=== PATIENT | male | born 1965 | race Hispanic/Latino ===

== ENCOUNTER → 2019-01-04 15:15 | Outpatient (CLI) | payer OTHER, SELFPAY ==
[2019-01-04 15:51] LABS: Hemoglobin A1C% w Est Avg Glu 5.6 % (4.0-6.0)
[2019-01-04 16:07] LABS: Alanine Aminotransferase 49 IU/L (21-72); Albumin 4.5 g/dL (3.5-5.0); Albumin Globulin Ratio 1.6 (1.0-2.8); Alkaline Phosphatase 96 U/L (38-126); Aspartate Aminotransferase 30 IU/L (17-59); BUN Creatinine Ratio 18.9 (6-22); Bilirubin Total 0.2 mg/dL (0.2-1.3); Blood Urea Nitrogen 17 mg/dL (9-20); Calcium 9.8 mg/dL (8.4-10.2); Carbon Dioxide 29 mmol/L (22-32); Chloride 103 mmol/L (98-107); Cholesterol 181 mg/dL (140-199); Estimated Glomerular Filt Rate > 60.0 mL/min (>60); Globulin 2.8 g/dL (1.7-4.1); Glucose 98 mg/dL (70-100); HDL Cholesterol 30 mg/dL (40-60); HEMOLYSIS < 15 (0-50); Potassium 4.2 mmol/L (3.4-5.1); Sodium 139 mmol/L (137-145); Total Protein 7.3 g/dL (6.3-8.2); Triglycerides 448 mg/dL (35-150)
[2019-01-04 16:21] LABS: Vitamin D 25 Hydroxy (D3) 17.5 ng/mL (30.0-100.0)
== END ==
PROVIDERS: PCP Internal Medicine; Visit Provider Student in an Organized Health Care Education/Training Program
DX: Z13.220 Encounter for screening for lipoid disorders (principal); E55.9 Vitamin D deficiency, unspecified; E66.01 Morbid (severe) obesity due to excess calories; I16.0 Hypertensive urgency; Z79.899 Other long term (current) drug therapy
CPT/HCPCS: 36415; 80053; 80061; 82306; 83036

== ENCOUNTER 2019-02-23 08:30 | Day surgery (SDC) | payer OTHER, SELFPAY ==
[2019-02-23 08:52] VITALS: BP 145/93; PULSE 84; RESP 16; TEMP 36.6; O2SAT 98; BMI 39.7
[2019-02-23] MEDS: SODIUM CHLORIDE 0.9% 1,000 ML 200 ML IV (09:00)
--- NOTE | 2019-02-23 09:25 | PM.HP.1 ---
History of Present Illness History of Present Illness Date Patient Seen: 02/23/19 Time Patient Seen: 09:25 Chief complaint: [id number] SCREENING COLONOSCOPY Narrative: This is a 53 yo man with history of colonoscopy 20 years ago for bleeding, during which some polyps were found per the patient, but no source of bleeding. At that time he was found to have peptic ulcers on an EGD as his source of bleeding. I don't have the records from that procedure. He is here for screening colonoscopy because he is beyond the appropriate age for screening. He denies any recent history of bleeding or melena. He denies any unexplained weight loss or abdominal pain. ROS: Positive for obesity. Denies cold symptoms, thirteen system review is otherwise negative other than as mentioned below and in HPI. PE: GENERAL: Well groomed and cooperative. Obese. Appears stated age. Answers questions promptly and appropriately. Vital signs noted. HENT: Normocephalic, atraumatic. Hearing intact. Oral mucosa is pink and moist. EYES: Conjunctiva pink, sclera white, no periorbital swelling. CARDIOVASCULAR: Regular rate. No pedal edema. RESPIRATORY: Non-tachypneic, breathing comfortably on room air. GASTROINTESTINAL: Abdomen soft and non-distended GENITALURINARY: No flank tenderness. MUSCULOSKELETAL: Equal tone and mass bilaterally. SKIN: Warm, dry, soft, appropriate color for ethnicity. No other lesions, rashes, or wounds. NEURO: Alert and Oriented X 3. No gross sensory deficits, or cognitive issues. PSYCH: Appropriate affect and mood. Patient History Medical History Chicken pox (Resolved ~1972) Fractures (Resolved ~1995) Frequent headaches (Resolved ~2018) History of skin disorder (Chronic ~2010) Measles (Resolved ~1971) Migraines (Chronic ~2018) Shoulder pain (Chronic ~1991) Surgical History Anesthesia (Resolved) Broken nose (Resolved ~1975) History of tonsillectomy (Resolved ~1969) Family & Social History Family History Grandfather Diabetes mellitus Grandmother No problems noted. Grandfather History of heart disease Hyperlipidemia Hypertension Grandmother History of emphysema Social History: household members spouse Tobacco & Substance use: Smoking Status Former smoker Meds Home Medications and Allergies Home Medications Medication Instructions Recorded Confirmed Type czemcecj-hjy-vvhty-vit K-lycop 1 tab PO DAILY #0 09/28/12 02/23/19 History [One-A-Day Men's Multivitamin] aspirin 81 mg tablet,delayed 81 mg PO DAILY 01/23/19 02/23/19 History release losartan 100 1 tab PO DAILY #90 tab 02/21/19 02/23/19 Rx mg-hydrochlorothiazide 12.5 mg tablet Allergies Allergy/AdvReac Type Severity Reaction Status Date / Time lisinopril AdvReac Mild Cough Verified 02/23/19 08:49 Exam Vital Signs (past 8 hours): - 02/23/19 08:52 Temperature 98 F Pulse Rate 84 Respiratory Rate 16 Blood Pressure 145/93 H Pulse Oximetry 98 Oxygen Delivery Method Room Air Assessment & Plan Assessment and plan (1) Colon cancer screening: Current visit: Yes Status: Acute (2) At average risk for colon cancer: Current visit: Yes Status: Acute Assessment & Plan narrative: Is a 53-year-old man here for screening colonoscopy. Risk of bleeding, perforation, need for additional procedures, risk of anesthesia were discussed. Patient desires to proceed with his colonoscopy. Time Spent With Patient Time with patient: 15-24 minutes Quality VTE Deep Vein Thrombosis/Pulmonary Embolism Present on Admission: No
[2019-02-23] MEDS: fentaNYL 250 MCG/5 ML INJ IV (09:50)
[2019-02-23] MEDS: MIDAZOLAM 5 MG/5 ML VIAL IV (09:50)
--- NOTE | 2019-02-23 09:50 | PM.OP.ENDO ---
Operative Date/Time/Diagnoses Date of procedure: 02/23/19 Time of procedure: 09:51 Pre-op diagnosis: Average risk for colon cancer Post-op diagnosis: same Procedure & Clinicians Study performed: Screening colonoscopy Same procedure as scheduled: Yes Indications: Average risk for colon cancer Surgeon: Shraddha Man Procedure Notes SCOAP/Timeout: Performed Procedure in detail: The patient was brought to the room and placed in left lateral decubitus position with all bony prominences padded. A time-out was performed and then the patient was given procedural sedation starting with [4] mg of Versed and [100] mcg of fentanyl. Vitals were monitored throughout the procedure and remained stable. Once adequately sedated the procedure was begun. A rectal exam was performed revealing [no abnormalities]. The colonoscope was then introduced to the rectum and advanced to the cecum in the usual fashion. []The cecum was identified by the appendiceal orifice, the mucosal tri-fold, and the ileocecal valve. The scope was then retracted while rotating side to side and examining each mucosal fold. [] At the conclusion of the procedure retroflexion was performed and [small grade 1-2 internal hemorrhoids without stigmata of bleeding were seen]. The scope was then withdrawn from the rectum the procedure was concluded. The patient tolerated the procedure well and was transferred to the PACU in stable condition. Scope withdrawal time: 9 Sedation minutes: 15 Findings: other findings (Normal colon) Specimen(s): none sent Complications: none Impression: Normal colon Post-procedure Recommendations: Colonscopy in 10 years Follow up: as needed Disposition: PACU
[2019-02-23 09:56] VITALS: BP 142/94; PULSE 82; RESP 17; TEMP 37.2; O2SAT 95
[2019-02-23 10:01] VITALS: BP 140/93; PULSE 89; RESP 18; O2SAT 96
[2019-02-23 10:05] VITALS: BP 154/94; PULSE 76; RESP 14; TEMP 37.1; O2SAT 97
[2019-02-23 10:10] VITALS: BP 143/94; PULSE 79; RESP 16; TEMP 36.6; O2SAT 98
[2019-02-23 10:15] VITALS: BP 147/90; PULSE 78; RESP 16; TEMP 36.9; O2SAT 96
== END 2019-02-23 10:30 | disposition home or self-care (01) ==
PROVIDERS: PCP Student in an Organized Health Care Education/Training Program; Visit Provider Surgery
PROC: 0DJD8ZZ Inspection of Lower Intestinal Tract, Via Natural or Artificial Opening Endoscopic (ICD-10-PCS; CPT 45378; principal; 2019-02-23 09:15)
DX: Z12.11 Encounter for screening for malignant neoplasm of colon (principal); K64.0 First degree hemorrhoids
CPT/HCPCS: 45378; 99152; J2250; J3010

== ENCOUNTER → 2019-04-26 07:43 | Outpatient (CLI) | payer OTHER, SELFPAY ==
[2019-04-26 08:51] LABS: Vitamin D 25 Hydroxy (D3) 34.4 ng/mL (30.0-100.0)
[2019-04-26 09:07] LABS: Blood Urea Nitrogen 18 mg/dL (9-20); Calcium 9.6 mg/dL (8.4-10.2); Carbon Dioxide 26 mmol/L (22-32); Chloride 104 mmol/L (98-107); Estimated Glomerular Filt Rate > 60.0 mL/min (>60); Glucose 107 mg/dL (70-100); HEMOLYSIS < 15 (0-50); Potassium 4.1 mmol/L (3.4-5.1); Sodium 139 mmol/L (137-145); Triglycerides 187 mg/dL (35-150)
== END ==
PROVIDERS: PCP Student in an Organized Health Care Education/Training Program; Referring Provider Student in an Organized Health Care Education/Training Program; Visit Provider Student in an Organized Health Care Education/Training Program
DX: E55.9 Vitamin D deficiency, unspecified (principal); E78.1 Pure hyperglyceridemia; I10 Essential (primary) hypertension
CPT/HCPCS: 36415; 80048; 82306; 84478

== ENCOUNTER → 2019-09-01 09:41 | Outpatient (CLI) | payer OTHER, SELFPAY ==
[2019-09-02 10:28] LABS: COVID19 Sendout Not Detected (Not Detect)
== END ==
PROVIDERS: PCP Student in an Organized Health Care Education/Training Program; Visit Provider Physician Assistant
DX: Z11.59 Encounter for screening for other viral diseases (principal)
CPT/HCPCS: 87635

== ENCOUNTER 2019-09-04 06:36 | Day surgery (SDC) | payer OTHER, SELFPAY ==
[2019-08-30 08:14] VITALS: BMI 42.7
[2019-09-04] VITALS (7 sets, daily range): BP systolic 95–134; BP diastolic 73–93; PULSE 76–90; RESP 12–18; TEMP 36.1–36.7; O2SAT 95–99; BMI 42.7
--- NOTE | 2019-09-04 | PATH_ITS ---
[facility] Accession Number: [id number] . 01 Material submitted: . neck - NECK SOFT TISSUE MASS . 01 Diagnosis: Neck, Excision: Mature adipose tissue consistent with lipoma. [facility] 09/06/2019 1723 Local . 01 Electronically signed: . Lucila Bosch MD, Dermatopathologist NPI- [id number] . 01 Gross description: . NECK SOFT TISSUE MASS: Received in formalin is 1 fragment of palencia soft tissue measuring 5.5 x 4.0 x 2.0 cm. Tissue is inked. Specimen is sectioned and submitted in patient financial representative sections in 4 cassettes. /JOSE GUADALUPE 09/05/2019 1840 Local . 01 Pathologist provided ICD-10: D17.9 . 01 CPT . 544871 Performed at: [address] [facility] [address], [place], [place] [id number] MD Km Portillo MD Phone: [phone]
--- NOTE | 2019-09-04 07:29 | PM.PREOP ---
Pre-operative Note COVID-19 COVID-19 status: Negative Result date/Date tested (Pos, Neg/Pending): 09/01/19 Interval Note History & Physical reviewed/Exam performed by Physician: Yes Changes to H&P: No
[2019-09-04] MEDS: LACTATED RINGERS 1,000 ML 42 ML IV (07:34)
[2019-09-04] MEDS: CEFAZOLIN 2 GM/100 ML FROZ.PIGGY IV (07:42)
--- NOTE | 2019-09-04 07:55 | SUR.OPER ---
Lateral on olivas bag, head on pillow, gel axillary roll in place, bottom leg bent with gel pad under knee to foot, upper leg straight and supported with pillows. Upper arm supported by pillows and secured over bottom arm to padded arm board. Safety belt at hip, tape over torso, tape over blanket lower legs.
[2019-09-04] MEDS: BUPIVACAINE 0.25% (PF) VIAL 30 ML INJ (08:06)
--- NOTE | 2019-09-04 08:56 | PM.OP.1 ---
Operative Date/Time/Diagnoses Date of procedure: 09/04/19 Time of procedure: 08:56 Pre-op diagnosis: Soft tissue mass posterior neck Post-op diagnosis: same Procedure & Clinicians Procedure: Excision soft tissue mass neck Same procedure as scheduled: Yes Indications: 53-year-old male with a symptomatic enlarging superficial soft tissue masses posterior neck presents for elective resection Surgeon: Ronny Lin Anesthesia Type: General Operative Notes Findings: 10 x 8 cm soft tissue mass appearance consistent with a lipoma Specimen(s): other (Soft tissue mass neck) Procedure in detail: Patient was brought to the operating room and placed in the lateral position with left side up. Monitored anesthesia care was induced. Bilateral lower extremity compression devices were applied. He received Ancef prior to skin incision. Time-out was performed. Skin was infiltrated with 0.25% bupivacaine. An incision was made at the base of the posterior neck over the soft tissue mass. Skin flaps were elevated above below. The soft tissue mass was consistent with the lipoma was superficial and was mobilized from the underlying fascial plane was approximately 10 x 8 cm. . It was then dissected out circumferentially and passed off the field as specimen. The field was copiously lavaged hemostasis achieved and 3 0 Vicryl was used to reapproximate the subcutaneous tissue. For Monocryl was run to close the skin followed by the application of Dermabond. He extubated was transferred to the recovery room in stable condition. Complications: none Post-operative Condition: stable Disposition: same day surgery
[2019-09-04] MEDS: ACETAMINOPHEN 325 MG TABLET 650 MG PO (09:10)
--- NOTE | 2019-09-04 09:47 | SUR.PHASEII ---
D/C instructions discussed by Nuha, all voiced an understanding. Pt left when ready and left in stable condition.
== END 2019-09-04 09:35 | disposition home or self-care (01) ==
PROVIDERS: PCP Student in an Organized Health Care Education/Training Program; Referring Provider Surgery; Visit Provider Surgery
PROC: (CPT 21554; principal; 2019-09-04 07:45)
DX: D17.0 Benign lipomatous neoplasm of skin and subcutaneous tissue of head, face and neck (principal); I10 Essential (primary) hypertension; E66.9 Obesity, unspecified
CPT/HCPCS: 21554; J0690; J2704; J3010

== ENCOUNTER → 2019-11-30 15:54 | Outpatient (CLI) | payer OTHER, SELFPAY ==
--- NOTE | 2019-11-30 15:58 | DIET.PN ---
Dietary Progress Note Assessment: 54y M here for help c weight loss and to regulate high TGs and low HDL. 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 Pt was working on his health and fitness prior to covid but has since stopped and is motivated to start again. 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 has bowl of candy for employees, usually chocolate but doesn't usually partake, had a trail mix in desk. Meds: losartin, and hydrochlorothiazide every day No active physical activity at this time. 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 Interventions: 1. Focus on getting back into physical activity. [employer] is open, pt will start going tomorrow each day at 4:30am. Pt will alternate 30 min on treadmill plus weights with 10min cycles of treadmill/elliptical/bike as he noticed weight plateau after losing 10# last attempt. 2. Be discerning when eating out lunch c coworkers. Pt is overconsuming high fat/high kcal/high carb meals 5d/w contributing to high TG and low HLD. Pt will ask for no rice c Kosovan food, 1/2 rice c food, and focus on low saturated fat fillings c sandwiches. Pt will order vegetables c meal whenever possible. Pt will increase consumption of beans to support protein needs and increase soluble fiber to promote weight loss. Monitoring/Evaluations: f/u in 1mo to assess progress, pt open to telehealth once available.
== END ==
PROVIDERS: PCP Student in an Organized Health Care Education/Training Program; Referring Provider Student in an Organized Health Care Education/Training Program; Visit Provider Student in an Organized Health Care Education/Training Program
DX: E66.9 Obesity, unspecified (principal); Z68.41 Body mass index [BMI] 40.0-44.9, adult; Z71.3 Dietary counseling and surveillance
CPT/HCPCS: 97802

== ENCOUNTER → 2021-03-05 11:22 | Outpatient (CLI) | payer OTHER, SELFPAY ==
[2021-03-05 12:42] LABS: BUN Creatinine Ratio 20.2 (6-22); Blood Urea Nitrogen 20 mg/dL (9-20); Calcium 9.7 mg/dL (8.4-10.2); Carbon Dioxide 30 mmol/L (22-32); Chloride 104 mmol/L (98-107); Estimated Glomerular Filt Rate > 60.0 mL/min (>60); Glucose 103 mg/dL (70-100); HEMOLYSIS 18 (0-50); Potassium 3.9 mmol/L (3.4-5.1); Sodium 141 mmol/L (137-145)
[2021-03-05 13:15] LABS: Prostate Specific Antigen Scrn 1.44 ng/mL (0.1-4.0)
== END ==
PROVIDERS: PCP Student in an Organized Health Care Education/Training Program; Referring Provider Student in an Organized Health Care Education/Training Program; Visit Provider Student in an Organized Health Care Education/Training Program
DX: I10 Essential (primary) hypertension (principal); E66.01 Morbid (severe) obesity due to excess calories; R73.03 Prediabetes; Z12.5 Encounter for screening for malignant neoplasm of prostate
CPT/HCPCS: 36415; 80048; 83036; G0103

== ENCOUNTER → 2022-03-24 09:45 | Outpatient (CLI) | payer OTHER, SELFPAY ==
[2022-03-24 11:00] LABS: BUN Creatinine Ratio 17.4 (6-22); Blood Urea Nitrogen 15 mg/dL (9-20); Calcium 9.3 mg/dL (8.4-10.2); Carbon Dioxide 29 mmol/L (22-32); Chloride 102 mmol/L (98-107); Estimated Glomerular Filt Rate > 60 mL/min (>60); Glucose 91 mg/dL (70-100); HEMOLYSIS < 15 (0-50); Potassium 4.3 mmol/L (3.4-5.1); Sodium 139 mmol/L (137-145)
[2022-03-25 20:25] LABS: Hep C Virus Ab w/Reflex Quant NEGATIVE s/c (NEGATIVE)
== END ==
PROVIDERS: PCP Student in an Organized Health Care Education/Training Program; Referring Provider Student in an Organized Health Care Education/Training Program; Visit Provider Student in an Organized Health Care Education/Training Program
DX: I10 Essential (primary) hypertension (principal); Z11.59 Encounter for screening for other viral diseases
CPT/HCPCS: 36415; 80048; 86803

== ENCOUNTER → 2023-03-18 11:56 | Outpatient (CLI) | payer OTHER, SELFPAY ==
[2023-03-18 13:04] LABS: Add Manual Diff / Slide Review NO; Basophils Absolute Auto 100 /uL (0-100); Basophils Percent Auto 1.5 % (0-2); Eosinophils Absolute Auto 300 /uL (0-450); Eosinophils Percent Auto 3.1 % (2-4); Hematocrit 44.3 % (41-53); Lymphocytes Absolute Auto 3200 /uL (1100-4500); Lymphocytes Percent Auto 37.4 % (25-40); Mean Corpuscular HGB Conc 33.9 % (30-36); Mean Corpuscular Hemoglobin 28.8 PG (26-34); Mean Corpuscular Volume 84.8 fL (80-100); Monocytes Absolute Auto 800 /uL (0-900); Monocytes Percent Auto 9.5 % (3-14); Neutrophils Absolute Auto 4100 /uL (1500-7000); Neutrophils Percent Auto 48.5 % (50-75); Platelet Count 292 X10^3/uL (150-400); Red Blood Cell Count 5.22 X10^6/uL (4.5-5.9); Red Cell Distribution Width 13.5 % (11.6-14.8); White Blood Cell Count 8.5 X10^3/uL (4.5-11.0)
[2023-03-18 13:12] LABS: Hemoglobin A1C% w Est Avg Glu 6.1 % (4.0-6.0)
[2023-03-18 13:25] LABS: Alanine Aminotransferase 74 IU/L (<50); Albumin 4.4 g/dL (3.5-5.0); Albumin Globulin Ratio 1.4 (1.0-2.8); Alkaline Phosphatase 80 U/L (38-126); Aspartate Aminotransferase 37 IU/L (17-59); BUN Creatinine Ratio 16.5 (6-22); Bilirubin Total 0.5 mg/dL (0.2-1.3); Blood Urea Nitrogen 16 mg/dL (9-20); Calcium 9.9 mg/dL (8.4-10.2); Carbon Dioxide 28 mmol/L (22-32); Chloride 103 mmol/L (98-107); Cholesterol 179 mg/dL (140-199); Estimated Glomerular Filt Rate > 60 mL/min (>60); Globulin 3.1 g/dL (1.7-4.1); Glucose 90 mg/dL (70-100); HDL Cholesterol 30 mg/dL (40-60); HEMOLYSIS < 15 (0-50); LDL Cholesterol Calculated 82 mg/dL (<100); Potassium 4.3 mmol/L (3.4-5.1); Sodium 139 mmol/L (137-145); Total Protein 7.5 g/dL (6.3-8.2); Triglycerides 335 mg/dL (35-150)
[2023-03-18 13:53] LABS: Prostate Specific Antigen 2.22 ng/mL (0.10-4.00)
== END ==
PROVIDERS: PCP Family Medicine; Referring Provider Family Medicine; Visit Provider Family Medicine
DX: R73.03 Prediabetes (principal); I10 Essential (primary) hypertension; E78.1 Pure hyperglyceridemia; Z12.5 Encounter for screening for malignant neoplasm of prostate
CPT/HCPCS: 36415; 80053; 80061; 83036; 84153; 85025

== ENCOUNTER → 2024-01-13 08:19 | Outpatient (CLI) | payer OTHER, SELFPAY ==
[2024-01-13 09:14] LABS: Hemoglobin A1C% w Est Avg Glu 6.1 % (4.0-6.0)
[2024-01-13 09:20] LABS: Alanine Aminotransferase 44 IU/L (<50); Albumin 4.3 g/dL (3.5-5.0); Albumin Globulin Ratio 1.7 (1.0-2.8); Alkaline Phosphatase 73 U/L (38-126); Aspartate Aminotransferase 25 IU/L (17-59); BUN Creatinine Ratio 21.8 (6-22); Bilirubin Total 0.4 mg/dL (0.2-1.3); Blood Urea Nitrogen 22 mg/dL (9-20); Calcium 9.7 mg/dL (8.4-10.2); Carbon Dioxide 29 mmol/L (22-32); Chloride 106 mmol/L (98-107); Cholesterol 176 mg/dL (140-199); Estimated Glomerular Filt Rate > 60 mL/min (>60); Globulin 2.6 g/dL (1.7-4.1); Glucose 103 mg/dL (70-100); HDL Cholesterol 34 mg/dL (40-60); HEMOLYSIS < 15 (0-50); LDL Cholesterol Calculated 103 mg/dL (<100); Potassium 4.2 mmol/L (3.4-5.1); Sodium 141 mmol/L (137-145); Total Protein 6.9 g/dL (6.3-8.2); Triglycerides 194 mg/dL (35-150)
== END ==
PROVIDERS: PCP Family Medicine; Referring Provider Family Medicine; Visit Provider Family Medicine
DX: I10 Essential (primary) hypertension (principal); E78.1 Pure hyperglyceridemia; R73.03 Prediabetes; E66.01 Morbid (severe) obesity due to excess calories
CPT/HCPCS: 36415; 80053; 80061; 83036

== ENCOUNTER → 2024-08-27 11:04 | Outpatient (CLI) | payer OTHER, SELFPAY ==
[2024-08-27 11:57] LABS: Influenza A - CEPHEID Flu A NEGATIVE (NEGATIVE); Influenza B - CEPHEID Flu B NEGATIVE (NEGATIVE); Respiratory Syncytial Virus Negative (Negative)
[2024-08-27 12:21] LABS: COVID-19 CEPHEID 4-PLEX PCR Negative (Negative)
== END ==
PROVIDERS: PCP Family Medicine; Visit Provider Family Medicine
DX: Z11.52 Encounter for screening for COVID-19 (principal)
CPT/HCPCS: 0241U

== ENCOUNTER → 2024-08-27 11:19 | Outpatient (CLI) | payer OTHER, SELFPAY ==
--- NOTE | 2024-08-27 11:22 | DI.RAD.S_ITS ---
PROCEDURE: XR KNEE LT 3V INDICATIONS: Acute on chronic left knee pain TECHNIQUE: 3 views of the knee were acquired. COMPARISON: None. FINDINGS: Bones: There are no osseous abnormalities. Joints: The tibialfemoral and patellofemoral joints show moderate degeneration. Soft tissues: Moderate calcification quadriceps tendon insertion on the superior patella is likely stigmata of old trauma or inflammation IMPRESSION: Moderate degeneration Dictated by: Vicente Gu M.D. on 08/28/2024 at 11:01 Approved by: Vicente Gu M.D. on 08/28/2024 at 11:02
== END ==
LOC: RAD 11:21
PROVIDERS: PCP Family Medicine; Referring Provider Family Medicine; Visit Provider Family Medicine
DX: M17.12 Unilateral primary osteoarthritis, left knee (principal); M25.562 Pain in left knee; Z11.52 Encounter for screening for COVID-19; G89.29 Other chronic pain
CPT/HCPCS: 0241U; 73562

== ENCOUNTER → 2024-12-13 06:38 | Outpatient (CLI) | payer OTHER, SELFPAY ==
--- NOTE | 2024-12-13 06:38 | DI.US.S_ITS ---
PROCEDURE: US PERIPH VENOUS LOW EXTREM RT INDICATIONS: EDEMA TECHNIQUE: Real-time imaging, as well as color and pulse Doppler interrogation, were performed of the lower extremity deep veins from the inguinal ligament to the popliteal fossa, with documentation of the visualized calf veins. COMPARISON: None. FINDINGS: The common femoral, femoral, popliteal, and the visualized calf veins are normally compressible, and free of intraluminal thrombus. Color and pulse Doppler demonstrate normal phasic intraluminal flow. There is normal augmentation response to distal compression maneuver. IMPRESSION: No findings of right-sided lower extremity deep venous thrombosis. Dictated by: Hipolito Dove M.D. on 12/13/2024 at 9:44 Approved by: Hipolito Dove M.D. on 12/13/2024 at 9:44
--- NOTE | 2024-12-13 06:38 | DI.ECHO.S_ITS ---
[facility]+ [facility] : : [address] : : [place] : : [id number] : : Phone: [phone] Echocardiogram Report + + :Name: SABRINA RODRIGUEZ Study Date: 12/13/2024 Height: 69 in : :Hospital ReadingLocation: Weight: 300 lb : : Gender: Male BSA: 2.5 m2 : :: 1965 Age: 59 yrs BP: 132/98 mmHg: :Reason For Study: SCREENING, LOWER EXTREMITY EDEMA : :Ordering Physician: TAVON, : :ZA Performed By: Jeanne Araiza : :Referring: ZA MONTES DE OCA : + + Interpretation Summary Normal sinus rhythm. Normal LV size and mild concentric LVH. Normal wall motion and LV systolic function. Ejection fraction is 55-60%. Normal chamber sizes. No significant valvular abnormalities. No prior echo available for comparison. Procedure: A two-dimensional transthoracic echocardiogram with color flow and Doppler was performed. The study quality was technically difficult. There is no prior echocardiogram noted for this patient. A contrast injection of Definity was performed to improve assessment of LV function. The patient was in sinus rhythm with heart rates between 60-66 bpm during the exam. Left Ventricle: The left ventricle is normal in size. There is mild concentric left ventricular hypertrophy. The ejection fraction is estimated to be 55-60%. Normal diastolic function. Right Ventricle: The right ventricle is normal in size and function. Atria: The left atrial size is normal. Right atrial size is normal. There is no Doppler evidence for an interatrial shunt. Mitral Valve: The mitral valve leaflets appear borderline thickened. There is moderate mitral annular calcification. There is trace mitral regurgitation. Aortic Valve: The aortic valve is not well visualized. There is no aortic valve stenosis. No aortic regurgitation is present. Tricuspid Valve: The tricuspid valve is not well visualized, but is grossly normal. There is mild tricuspid regurgitation. The right ventricular systolic pressure is estimated to be at least 26 mmHg based on an estimated right atrial pressure of 8 mm Hg. Pulmonic Valve: The pulmonic valve is not well visualized. There is no pulmonic valvular regurgitation. Great Vessels: The aortic root is normal size. The dimensions of the ascending aorta are normal. The IVC is of normal diameter and collapses less than 50% with a sniff. This suggests a right atrial pressure of 8 mm Hg. Pericardium/ Pleura There is no pericardial effusion. There is no pleural effusion. MMode/2D Measurements & Calculations LVIDd: 4.3 cm LVOT diam: 2.4 cm LVIDs: 2.9 cm Ao root diam: 3.5 cm FS: 33.2 % asc Aorta Diam: 3.4 cm IVSd: 1.1 cm LVPWd: 1.1 cm LV leyva. diameter/BSA (cm/m^2): 1.8 LV sys. diameter/BSA (cm/m^2): 1.2 LA A2 area: 21.8 cm2 RA long axis: 4.7 cm LA A4 area: 17.1 cm2 RA area: 18.0 cm2 LA length (vol): 5.1 cm RA vol: 58.7 ml LA vol: 61.5 ml RA : 23.9 ml/m2 LA vol index: 25.1 ml/m2 IVC diam: 1.7 cm RVD1 (basal): 3.9 cm RVD2 (mid): 3.1 cm TAPSE: 1.7 cm Doppler Measurements & Calculations Ao V2 max: 108.2 cm/sec LVOT Max Bar: 80.4 cm/sec Ao V2 mean: 78.8 cm/sec LV V1 max P.6 mmHg Ao max P.7 mmHg LV V1 VTI: 17.7 cm Ao mean P.7 mmHg XAVIER(I,D): 3.1 cm2 Ao V2 VTI: 25.6 cm XAVIER(V,D): 3.4 cm2 sev ratio: 0.69 XAVIER indexed to BSA (cm^2/m^2): 1.3 MV E max bar: 75.2 cm/sec TR max bar: 210.5 cm/sec MV A max bar: 65.4 cm/sec TR max P.7 mmHg MV E/A: 1.1 PA V2 max: 74.8 cm/sec Med Peak E' Bar: 7.5 cm/sec PA V2 mean: 50.9 cm/sec E/E' med: 10.0 PA mean P.2 mmHg Lat Peak E' Bar: 7.8 cm/sec PA pr(Accel): 43.9 mmHg E/E' lat: 9.6 E/e' average: 9.8 MV dec time: 0.17 sec MVA(VTI): 3.0 cm2 MV V2 mean: 56.6 cm/sec SV(LVOT): 80.4 ml MV mean P.5 mmHg MV V2 VTI: 27.0 cm Electronically signed by: Nury Alvarado M.D. on Reading Physician:12/13/2024 07:38 PM
== END ==
LOC: US 06:38
PROVIDERS: PCP Family Medicine; Referring Provider Family Medicine; Visit Provider Family Medicine
DX: R60.0 Localized edema (principal); I08.1 Rheumatic disorders of both mitral and tricuspid valves
CPT/HCPCS: 93971; C8929; Q9957

== ENCOUNTER → 2025-01-15 09:47 | Outpatient (CLI) | payer OTHER, SELFPAY ==
[2025-01-15 10:19] LABS: Add Manual Diff / Slide Review NO; Hematocrit 42.1 % (41-53); Hemoglobin 14.6 g/dL (13.5-17.5); Lymphocytes Absolute Auto 2100 /uL (1100-4500); Mean Corpuscular HGB Conc 34.7 % (30-36); Mean Corpuscular Hemoglobin 28.8 PG (26-34); Mean Corpuscular Volume 83.1 fL (80-100); Platelet Count 272 X10^3/uL (150-400)
[2025-01-15 10:25] LABS: Hemoglobin A1C% w Est Avg Glu 6.0 % (4.0-6.0)
[2025-01-15 10:44] LABS: Alanine Aminotransferase 44 IU/L (<50); Albumin 4.2 g/dL (3.5-5.0); Albumin Globulin Ratio 1.4 (1.0-2.8); Alkaline Phosphatase 84 U/L (38-126); Blood Urea Nitrogen 16 mg/dL (9-20); Calcium 9.5 mg/dL (8.4-10.2); Carbon Dioxide 30 mmol/L (22-32); Chloride 103 mmol/L (98-107); Cholesterol 172 mg/dL (140-199); Estimated Glomerular Filt Rate > 60 mL/min (>60); Globulin 3.0 g/dL (1.7-4.1); Glucose 96 mg/dL (70-99); HDL Cholesterol 31 mg/dL (40-60); HEMOLYSIS < 15 (0-50); Potassium 3.9 mmol/L (3.4-5.1); Sodium 140 mmol/L (137-145); Total Protein 7.2 g/dL (6.3-8.2); Triglycerides 351 mg/dL (35-150); Uric Acid 8.0 mg/dL (3.5-8.5)
[2025-01-15 11:16] LABS: TSH w/ Reflex to FT4 1.71 uIU/mL (0.47-4.68)
== END ==
PROVIDERS: PCP Family Medicine; Referring Provider Family Medicine; Visit Provider Family Medicine
DX: Z00.00 Encounter for general adult medical examination without abnormal findings (principal); N40.1 Benign prostatic hyperplasia with lower urinary tract symptoms; R35.1 Nocturia; R73.03 Prediabetes; I10 Essential (primary) hypertension; E78.1 Pure hyperglyceridemia
CPT/HCPCS: 36415; 80053; 80061; 83036; 84443; 84550; 85025